=== PATIENT | male | born 1985 | race Two or more races ===

== ENCOUNTER 2017-01-07 22:08 | Emergency (ER) | payer SELFPAY ==
[~2017-01-07 22:08] MED LIST: ACETAMINOPHEN120 ML PO; AMOXICILLIN500 M PO; AMOXICILLIN875 M1 PO; CLEOCIN HCL300 M1 PO; CLEOCIN HCL300 MG PO; CLINDAMYCIN HC300 MG PO; CORTISPORIN EAR10 M LEFT EAR; CYCLOBENZAPRINE10 M1 PO; FLEXERIL10 MG PO; HYDROCODON-ACE1 EA16 PO; IBUPROFEN IB200 M1 PO; IBUPROFEN800 M1 PO; IBUPROFEN800 MG PO; LORTAB 5-500 T1 EACH PO; MOTRIN600 MG PO; NAPROSYN500 M1 PO; NO HOME MEDICATION; NO HOME MEDICATION XX; NO MEDS; NORCO 5-325 TA1 EACH PO; NORCO 5/325 TAB1 TAB PO; NORCO 5/3251 TAB PO; PEN-VEE K500 MG PO; PENICILLIN V P500 M1 PO; PERCOCET 5/3251 TAB PO; RELAFEN500 MG PO; SKELAXIN800 M3 PO; TYLENOL WITH C1 EACH PO; XANAX1 M1 PO; ZANTAC150 MG PO; ZOFRAN4 MG PO
[2017-01-07] MEDS ORDERED: IBUPROFEN600 M1 PO (23:55)
[2017-01-07] MEDS ORDERED: PENICILLIN V P500 M1 PO (23:55)
[2017-01-07] MEDS ORDERED: NORCO 5/3251 TAB PO (23:55)
== END 2017-01-08 00:03 ==
LOC: EDMED 22:08
DX: S39.012A Strain of muscle, fascia and tendon of lower back, initial encounter (principal); K08.89 Other specified disorders of teeth and supporting structures; W19.XXXA Unspecified fall, initial encounter